=== PATIENT | female | born 1945 | race Caucasian/White ===

== ENCOUNTER → 2019-04-16 13:27 | Outpatient (BNVA) | payer MEDICARE, SELFPAY | PROVIDERS: Family Provider Nurse Practitioner Family; Visit Provider Family Medicine | DX: N12 Tubulo-interstitial nephritis, not specified as acute or chronic (principal); N10 Acute pyelonephritis; N39.0 Urinary tract infection, site not specified | CPT/HCPCS: 81003 ==

== ENCOUNTER 2019-08-27 09:15 | Inpatient (IN) | payer MEDICARE, SELFPAY ==
[2019-08-27] VITALS (9 sets, daily range): BP systolic 126–143; BP diastolic 76–98; PULSE 68–100; RESP 16–20; TEMP 36.8–37.7; O2SAT 95–100; BMI 27.2
--- NOTE | 2019-08-27 09:59 | XR_ITS ---
WS: [id number] PORTABLE CHEST HISTORY: dyspnea/cough COMPARISON: 04/29/2017 New obscuration and consolidation at the LEFT lung base. RIGHT lung is clear. Normal vasculature. No pleural effusion or pneumothorax. Cardiac size: Mildly enlarged cardiac silhouette. Mediastinum/Aorta: Partially calcified aorta. No osseous abnormality seen. XR/XR chest 1V portable [id number] IMPRESSION: Acute LEFT lower lobe pneumonia and probable small adjacent effusion.
[2019-08-27 10:21] LABS: Basophils % 0.3 %; Eosinophils % 0.2 %; Hematocrit 41.6 % (37.0-47.0); Hemoglobin 13.1 g/dL (11.5-15.3); Lymphocytes % 8.3 %; Mean Corpuscular HGB Conc 31.5 g/dL (30.0-36.0); Mean Corpuscular Hemoglobin 30.3 pg (28.0-34.0); Mean Corpuscular Volume 96.3 fL (81-99); Mean Platelet Volume 9.4 fL (7.4-10.4); Monocytes # 0.8 10^3/uL (0.2-0.9); Monocytes % 6.4 %; Neutrophils # 9.4 10^3/uL (1.8-7.7); Neutrophils % 79.6 %; Nucleated Red Blood Cells % 0 %; Platelet Count 181 10^3/cmm (130-400); Red Blood Count 4.32 10^6/uL (4.1-5.3); Red Cell Distribution Width 15.1 % (12.1-15.1); White Blood Count 11.9 10^3/uL (4.0-10.0)
[2019-08-27 10:24] LABS: Alveolar-Arterial Oxygen Gradi 47.7 mmHg (5-10); Arterial Blood Gas Hematocrit 41.3 % (37-47); Base Excess ABG 1.5 mmol/L (-2.0-2.0); Blood Gas Allen Test Pos; Blood Gas Operator Identificat glc; Blood Gas Sample Site Radial, right; Blood Gas Sample Type Arterial; Carboxyhemoglobin 1.4 %THgb (0.4-20.1); HCO3 ABG 24.1 mmol/L (22-26); Ionized Calcium Level - ABG 1.2 mmol/L (1.1-1.4); Methemoglobin 0.9 % (0.4-1.5); Oxygen Device ROOM AIR; Oxygen Saturation ABG 95.2; PO2 ABG 61.7 mmHg (80.0-100.0); Total Hemoglobin 13.5 g/dL (12-16)
--- NOTE | 2019-08-27 10:31 | W.ED.GENADLT ---
HPI - General Adult General: Chief complaint: General Medical Stated complaint: coughing up blood/trouble walking Time Seen by Provider: 08/27/19 09:22 History of Present Illness: HPI narrative: 74-year-old female with a known history of lung cancer with metastasis to the brain she diagnosed about 3 to 4 months ago she usually is receiving her oncology treatment in [facility] she recently completed radiation she supposed to begin chemo on 724. She comes in today complaining of left lower chest pain worse when she takes a deep breath and increasing hemoptysis over the last several days showed a low-grade fever as well as a change in character of sputum including the increased blood. She has not had any radiation to the lung. They have been tapering her off some steroid she has noticed significant increase in difficulty with breathing as well. She is not been around anyone who is COVID positive as far she is aware. Onset (ago): day(s) Location: chest (Left lower chest pain with deep inspiration sharp point tenderness) Radiation: non-radiation Severity: severe Quality: stabbing and sharp Pain Consistency: intermittent Relieving factors: immobilization and rest Exacerbating factors: other (Deep inspiration and movement) Associated symptoms: Reports chest pain, cough, diaphoresis, decreased appetite, dyspnea, fevers/chills and malaise; Deny nausea, rash or vomiting Treatments prior to arrival: none Review of Systems Const: Reports: malaise and diaphoresis ENMT: Denies: throat pain, ear or mastoid pain, nasal discharge or nasal congestion Card: Reports: chest pain Resp: Reports: dyspnea, productive cough, non-productive cough and hemoptysis GI: Denies: abdominal pain, nausea, vomiting, hematemesis, coffee ground emesis, diarrhea, constipation, bloating, hematochezia or melena : Denies: flank pain, difficulty voiding, dysuria, urinary frequency or urinary urgency Skin/Breast: Denies: rash or pruritus PFSH ED PFSH: Medical History (Updated 08/27/19 @ 14:42 by Grady Resendiz DO) Non-small cell lung cancer metastatic to brain Surgical History (Updated 08/27/19 @ 10:41 by Grady Resendiz DO) H/O hysterectomy for benign disease S/P appy Social History (Updated 04/16/19 @ 13:17 by Sienna Elias LPN) Smoking and tobacco status: never smoked Alcohol intake: never Physical Exam Const: COMMON NORMALS: no acute distress GENERAL APPEARANCE: cooperative and comfortable ORIENTATION/CONSCIOUSNESS: Yes awake, Yes oriented to person, Yes oriented to place and Yes oriented to time HENMT: COMMON NORMALS: normocephalic, atraumatic, hearing grossly normal bilaterally, external ears normal, EAC's normal, TM's normal bilaterally, Normal nasal mucous membranes and turbinates present, moist oral mucous membranes and oropharynx normal HEAD & SCALP: normocephalic and atraumatic NOSE: Normal nasal mucous membranes and turbinates present EXTERNAL EAR: Yes external ears normal EXTERNAL AUDITORY CANAL: EAC's normal TYMPANIC MEMBRANE: TM's normal bilaterally Eye: COMMON NORMALS: Equal, round and reactive pupils present, EOMs intact bilaterally, conjunctivae normal and no scleral icterus CONJUNCTIVA: Yes conjunctivae normal PUPIL: Yes Equal, round and reactive pupils present Neck/C-Spine: COMMON NORMALS: full ROM, no lymphadenopathy, supple and no JVD Lymph: LYMPHATIC: no lymphadenopathy noted and no lymphedema noted Resp: AUSCULTATION: diminished lung sounds on the left in the lower lung kent Cardio: COMMON NORMALS: no JVD, regular rate, regular rhythm and No murmurs present (Cardio) RATE: regular rate RHYTHM: regular rhythm GI: COMMON NORMALS: Soft to palpation and No hepatosplenomegaly present AUSCULTATION: Yes normoactive bowel sounds PALPATION: Yes Soft to palpation, No Tenderness to palpation present (GI), No Guarding due to palpation present (GI) and Yes No hepatosplenomegaly present Extremity: COMMON NORMALS: normal to inspection, capillary refill normal, no clubbing, cyanosis or edema, no calf tenderness and no pedal edema Neuro: SENSORIUM/ORIENTATION: Yes oriented to person, Yes oriented to place and Yes oriented to time Skin: COMMON NORMALS: no rashes or lesions noted GENERAL SKIN EXAM: no rashes or lesions noted Course Vital Signs: Vital signs: Vital Signs Temperature 99.8 F H 08/27/19 09:26 Pulse Rate 100 08/27/19 09:26 Respiratory Rate 18 08/27/19 10:40 Blood Pressure 143/85 08/27/19 09:26 Pulse Oximetry 95 08/27/19 10:40 MDM - General Adult MDM Narrative: Medical decision making narrative: CT shows multiple pulmonary infarcts as well as a pneumonia will go and started on IV antibiotics and heparin. Discussed Dr. Ramirez will be admitting. She is not having any significant amount process at this time. Lab Data: Labs: Lab Results 08/27/19 08/27/19 08/27/19 Range/Units 09:08 09:08 09:08 WBC 11.9 H (4.0-10.0) 10^3/ uL RBC 4.32 (4.1-5.3) 10^6/u L Hgb 13.1 (11.5-15.3) g/dL Hct 41.6 (37.0-47.0) % MCV 96.3 (81-99) fL MCH 30.3 (28.0-34.0) pg MCHC 31.5 (30.0-36.0) g/dL RDW 15.1 (12.1-15.1) % Plt Count 181 (130-400) 10^3/c mm MPV 9.4 (7.4-10.4) fL Neut % (Auto) 79.6 % Lymph % (Auto) 8.3 % [place] % (Auto) 6.4 % Eos % (Auto) 0.2 % Baso % (Auto) 0.3 % Neut # (Auto) 9.4 H (1.8-7.7) 10^3/u L Lymph # (Auto) 1.0 (0.8-4.8) 10^3/u L [place] # (Auto) 0.8 (0.2-0.9) 10^3/u L Eos # (Auto) 0.0 (0.0-0.8) 10^3/u L Baso # (Auto) 0.0 (0.0-0.1) 10^3/u L Nucleated RBC % (a uto) 0 % Nucleated RBCs # 0.0 /100WBC Specimen Type Sample Site ABG pH (7.35-7.45) ABG pCO2 (35-45) mmHg ABG pO2 (80.0-100.0) mmH g ABG HCO3 (22-26) mmol/L ABG O2 Saturation ABG Base Excess (-2.0-2.0) mmol/ L Ponce Test A-a O2 Gradient (5-10) mmHg Hematocrit (37-47) % Hgb O2 Saturation (95-100) % Carboxyhemoglobin (0.4-20.1) %THgb Methemoglobin (0.4-1.5) % Total Hemoglobin (12-16) g/dL Ionized Calcium (1.1-1.4) mmol/L O2 Delivery Device FiO2 % Air Gun Operator ID Sodium 136 (136-145) mmol/L Potassium 4.4 (3.5-5.1) mmol/L Chloride 98 (98-107) mmol/L Carbon Dioxide 26 (22-29) mmol/L Anion Gap 16.4 (5-19) BUN 16 (8-23) mg/dL Creatinine 0.8 (0.5-0.9) mg/dL Glucose 100 (65-115) mg/dL Calculated Osmolal ity 278 L (285-295) mOsm/k g Lactate 0.9 (0.5-2.2) mmol/L Calcium 8.9 (8.5-10.5) mg/dL Total Bilirubin 0.9 (0.15-1.2) mg/dL AST 26 (0-32) U/L ALT 31 (0-33) U/L Alkaline Phosphata se 98 (35-105) IU/L Total Protein 6.6 (6.6-8.7) g/dL Albumin 3.5 (3.5-5.2) g/dL Globulin 3.1 (1.3-4.6) g/dL Urine Color (Yellow) Urine Appearance (CLEAR) Urine pH (5-7) Ur Specific Gravit y (1.005-1.030) Urine Protein (Negative) Urine Glucose (UA) (Normal) Urine Ketones (Negative) Urine Blood (Negative) Urine Nitrate (Negative) Urine Bilirubin (NEGATIVE) Urine Urobilinogen (Negative) mg/dL Ur Leukocyte Alia ase (Negative) Urine RBC (0-2) /hpf Urine WBC (0-5) /hpf Ur Squamous Epith Cells (0-5) Amorphous Sediment Urine Bacteria (NONE) 08/27/19 08/27/19 Range/Units 10:11 11:12 WBC (4.0-10.0) 10^3/ uL RBC (4.1-5.3) 10^6/u L Hgb (11.5-15.3) g/dL Hct (37.0-47.0) % MCV (81-99) fL MCH (28.0-34.0) pg MCHC (30.0-36.0) g/dL RDW (12.1-15.1) % Plt Count (130-400) 10^3/c mm MPV (7.4-10.4) fL Neut % (Auto) % Lymph % (Auto) % [place] % (Auto) % Eos % (Auto) % Baso % (Auto) % Neut # (Auto) (1.8-7.7) 10^3/u L Lymph # (Auto) (0.8-4.8) 10^3/u L [place] # (Auto) (0.2-0.9) 10^3/u L Eos # (Auto) (0.0-0.8) 10^3/u L Baso # (Auto) (0.0-0.1) 10^3/u L Nucleated RBC % (a uto) % Nucleated RBCs # /100WBC Specimen Type Arterial Sample Site Radial, right ABG pH 7.50 H (7.35-7.45) ABG pCO2 31.0 L (35-45) mmHg ABG pO2 61.7 L (80.0-100.0) mmH g ABG HCO3 24.1 (22-26) mmol/L ABG O2 Saturation 95.2 ABG Base Excess 1.5 (-2.0-2.0) mmol/ L Ponce Test Pos A-a O2 Gradient 47.7 H (5-10) mmHg Hematocrit 41.3 (37-47) % Hgb O2 Saturation 93.0 L (95-100) % Carboxyhemoglobin 1.4 (0.4-20.1) %THgb Methemoglobin 0.9 (0.4-1.5) % Total Hemoglobin 13.5 (12-16) g/dL Ionized Calcium 1.2 (1.1-1.4) mmol/L O2 Delivery Device Room air FiO2 21.0 % Air Gun Operator ID glc Sodium 134.0 (136-145) mmol/L Potassium 4.0 (3.5-5.1) mmol/L Chloride (98-107) mmol/L Carbon Dioxide (22-29) mmol/L Anion Gap (5-19) BUN (8-23) mg/dL Creatinine (0.5-0.9) mg/dL Glucose 100.0 (65-115) mg/dL Calculated Osmolal ity (285-295) mOsm/k g Lactate (0.5-2.2) mmol/L Calcium (8.5-10.5) mg/dL Total Bilirubin (0.15-1.2) mg/dL AST (0-32) U/L ALT (0-33) U/L Alkaline Phosphata se (35-105) IU/L Total Protein (6.6-8.7) g/dL Albumin (3.5-5.2) g/dL Globulin (1.3-4.6) g/dL Urine Color Yellow (Yellow) Urine Appearance Sl hazy (CLEAR) Urine pH 5 (5-7) Ur Specific Gravit y 1.020 (1.005-1.030) Urine Protein Neg (Negative) Urine Glucose (UA) Norm (Normal) Urine Ketones Negative (Negative) Urine Blood Neg (Negative) Urine Nitrate Negative (Negative) Urine Bilirubin Neg (NEGATIVE) Urine Urobilinogen Norm (Negative) mg/dL Ur Leukocyte Alia ase 1+ H (Negative) Urine RBC None (0-2) /hpf Urine WBC 5-10 H (0-5) /hpf Ur Squamous Epith Cells 0-4 H (0-5) Amorphous Sediment Not Reportable Urine Bacteria 1+ H (NONE) Discharge Plan Discharge Admit Provider: Akhil Ramirez Clinical Impression: Non-small cell lung cancer metastatic to brain, Pulmonary emboli, Embolism, pulmonary with infarction Condition: Stable Coding Level of Care Code ED Bench Technician for Chg Fwd Exam Comprehensive
[2019-08-27 10:35] LABS: Alanine Aminotransferase 31 U/L (0-33); Albumin Level 3.5 g/dL (3.5-5.2); Alkaline Phosphatase 98 IU/L (35-105); Anion Gap 16.4 (5-19); Aspartate Amino Transferase 26 U/L (0-32); Blood Urea Nitrogen 16 mg/dL (8-23); Calcium 8.9 mg/dL (8.5-10.5); Carbon Dioxide 26 mmol/L (22-29); Chloride 98 mmol/L (98-107); Globulin 3.1 g/dL (1.3-4.6); Glucose 100 mg/dL (65-115); Osmolality Calculated 278 mOsm/kg (285-295); Potassium 4.4 mmol/L (3.5-5.1); Sodium 136 mmol/L (136-145); Total Bilirubin 0.9 mg/dL (0.15-1.2); Total Protein 6.6 g/dL (6.6-8.7)
[2019-08-27 10:36] LABS: Lactate (Lactic Acid level) 0.9 mmol/L (0.5-2.2)
[2019-08-27] MEDS: morphine 4 mg/mL SDV 1 mL 6 MG IVP (10:40)
[2019-08-27] MEDS: ondansetron 2 mg/ML SDV 2 mL 4 MG IVP (10:40)
[2019-08-27] MEDS: sodium chloride 0.9% 1,000 ML 999 ML IV (10:42)
[2019-08-27 11:10] LABS: Slide Review Slide Review Perform
[2019-08-27 11:36] LABS: Add Urine Microscopic? YES; Bilirubin Urine Neg (NEGATIVE); Blood Urine Neg (Negative); Glucose Urine UA Norm (Normal); Ketones Urine Negative (Negative); Leukocyte Esterase Urine 1+ (Negative); Nitrate Urine Negative (Negative); Protein Urine Neg (Negative); Urine Appearance SL Hazy (CLEAR); Urine Color Yellow (Yellow); Urobilinogen Urine Norm (Negative); pH Urine 5 (5-7)
[2019-08-27 11:47] LABS: Bacteria Urine 1+; Squamous Epithelial Cell Urine 0-4 (0-5)
[2019-08-27 11:48] LABS: Add Urine Culture? No
[2019-08-27] MEDS: levofloxacin-dextrose 5 % 750 MG/150 ML PREMIX 100 MG IV (12:02)
--- NOTE | 2019-08-27 12:14 | CT_ITS ---
WS: [id number] CT CHEST ANGIOGRAPHY WITH REFORMATS HISTORY: chest pain, dyspnea TECHNIQUE: Contiguous axial images are obtained through the chest during arterial injection of intrav enous contrast. Images are reconstructed to evaluate the pulmonary arteries. MIP imaging also reviewe d. All CT scans at [facility] use at least one of these dose optimization techniques: aut omated exposure control; mA and/or kV adjustment per patient size (includes targeted exams where dose is matched to clinical indication); or iterative reconstruction. CONTRAST: Omnipaque 350; 95 mL IV. DLP: 521.09 mGy.cm COMPARISON: 09/03/2014 Excellent opacification of the pulmonary arteries. Centrally there are no filling defects. The RIGHT and LEFT main pulmonary arteries are free of emboli. Multiple emboli are noted in the segmental and s ubsegmental arteries of the RIGHT upper, RIGHT middle and RIGHT lower lobes. Majority of these embol i are nonocclusive. There is an associated developing wedge-shaped opacification in the RIGHT lower l obe which is probably an infarct. LEFT upper lower lobe segmental and subsegmental nonocclusive pulmo nary emboli are also noted. LEFT lower lobe pulmonary infarct. Small bilateral pleural effusions, LEF T greater than RIGHT. LEFT apical spiculated nodule measures 1.2 cm. Described on 09/03/2014 with no follow-up since that ex am. Pneumonitis at the LEFT lung base. Subsegmental atelectasis at the RIGHT lung base. Mild atherosclerosis aorta. No aneurysm. Heart size is slightly enlarged. Mild thickening of the sanna cardium. No significant adenopathy. Liver is normal. Visualized upper abdominal structures are negative. Increase in thoracic kyphosis. No osteoblastic or osteolytic bone disease. CT/CT angio chest PE protcl [id number] IMPRESSION: 1. Multi lobar segmental and subsegmental nonocclusive pulmonary emboli. 2. Pulmonary infarcts in the lower lobes bilaterally secondary to the emboli. 3. Small bilateral, LEFT greater than RIGHT pleural effusions. 4. Spiculated LEFT upper lobe nodule measures 1.2 cm. Suspicious for neoplasm. 5. Cardiomegaly. 6. No adenopathy.
[2019-08-27] MEDS: iohexol 350 mg/mL 100 mL Btl IV (12:42)
[2019-08-27] MEDS: heparin 5,000 unit/mL INJ 1 mL 4000 UNIT IVP (14:27)
[2019-08-27] MEDS: piperacillin-tazobactam 3.375 GM in sodium chloride 0.9% (plus) 50 ML IV ×2 (14:36→15:11)
[2019-08-27] MEDS: heparin drip 25,000 UNIT/500 ML PREMIX 18.6 UNIT IV (15:00)
--- NOTE | 2019-08-27 16:53 | P.HP_ITS ---
Providers/Chief Complaint Admitting Physician: Akhil Ramirez Chief Complaint: coughing up blood/trouble walking History of Present Illness Helen Jones is a 74 year old female with metastatic squamous cell cancer undergoing treatment in [facility], with disease metastatic to brain, having finished 10 weeks of radiation therapy, currently pending reassessment by oncology to initiate chemotherapy, HLD presented to the hospital due to left lower chest wall pain, but also shortness of breath, cough, phlegm production and blood clots in sputum. In ER with temperature 99.8, left lower lobe infiltrate suspected pneumonia on chest x-ray. CT angiogram was requested due to concern for PE, and with finding of multilobar segmental and subsegmental nonocclusive PE, as well as with complication of pulmonary infarct in lower lobes bilaterally due to the emboli. Small bilateral pleural effusions. Spiculated left upper lobe nodule 1.2 cm for which she is aware. She was started on antibiotics for pneumonia and heparin drip for anticoagulation. During my questioning she overall is feeling well, she states that the pain in posterior left chest is reproducible on palpation, although she also has difficult time taking deep breaths. She has been producing a good amount of phlegm, and with mixed in blood clots. She denies have any fever at home, denies having any chills or rigors, denies any headache. She has not been exposed to anybody who is COVID, and always wears a mask, use a day care attendant, and gets her groceries from her friends will bring them to her house, who also aware mask and gloves at all times. Review of Systems Const: Denies: fever(s), chills, body aches or malaise Eyes: Denies: change in vision or eye redness ENMT: Denies: throat pain, oral sores or ear or mastoid pain Card: Denies: chest pain, edema, pre-syncope or dyspnea on exertion Resp: Reports: dyspnea, productive cough, hemoptysis and other (Chest wall pain left lower posterior chest); Denies: wheezing GI: Denies: abdominal pain, nausea, vomiting, diarrhea, constipation, hematochezia or melena : Denies: flank pain, urinary frequency or hematuria Musc: Denies: back pain, joint swelling or joint redness Skin/Breast: Denies: rash, sores or new lesions Neuro: Denies: headache(s), numbness in extremities, weakness in extremities, dizziness, confusion or seizure-like activity Endo: Denies: polyuria or polydipsia Familia/Lymph: Denies: easy bleeding or purpura All/Imm: Denies: urticaria, throat swelling or tongue swelling Medications/Allergies Home Medications Medication Instructions Recorded Confirmed Last Taken Type sacubitril 24 mg-valsartan 26 mg 1 tab PO BID 04/16/19 08/27/19 08/27/19 History tablet albuterol sulfate 1 puff INHALATION Q6H PRN 08/27/19 08/27/19 Unknown History atorvastatin 20 mg PO DAILY 08/27/19 08/27/19 08/27/19 History carvedilol 3.125 mg PO BID 08/27/19 08/27/19 08/27/19 History dexamethasone See Rx Instructions .ROUTE .COMPLEX 08/27/19 08/27/19 Unknown History hydrocodone-acetaminophen 1 - 2 tab PO Q4H PRN 08/27/19 08/27/19 08/26/19 History lidocaine 1 applic TOPICAL TID PRN 08/27/19 08/27/19 Unknown History multivit with min-folic acid 200 mcg PO DAILY 08/27/19 08/27/19 08/27/19 History [Adult Multivitamin Gummies] trazodone 50 mg PO BEDTIME PRN 08/27/19 08/27/19 Unknown History Allergies Allergy/AdvReac Type Severity Reaction Status Date / Time No Known Allergies Allergy Verified 08/27/19 10:21 PFSH Acute PFSH: Medical History HLD (hyperlipidemia) Non-small cell lung cancer metastatic to brain Surgical History H/O hysterectomy for benign disease H/O knee surgery H/O shoulder surgery S/P appy Family History Other Hypertension Social History Smoking and tobacco status: never smoked Alcohol intake: never Substance/Drug Use: never Lives independently: Yes Household members: other Details: girlfriend Vitals/I&O/Wt Last Vital Signs Temp 98.2 F 08/27/19 15:31 Pulse 85 08/27/19 15:31 Resp 18 08/27/19 15:31 BP 127/83 08/27/19 15:31 Pulse Ox 95 08/27/19 15:31 Weight last 48 hrs Weight 66.451 kg Physical Exam Const: COMMON NORMALS: no acute distress and patient oriented x3 HENMT: COMMON NORMALS: oropharynx normal HEAD & SCALP: other (alopecia) Neck/C-Spine: COMMON NORMALS: no JVD Resp: COMMON NORMALS: normal respiratory effort and clear to auscultation jacqueline aterally AUSCULTATION: clear to auscultation bilaterally Cardio: COMMON NORMALS: no JVD, regular rhythm, S1 normal heart sound present, S2 normal heart sound present and No murmurs present (Cardio) RHYTHM: regular rhythm HEART SOUNDS: S1 normal heart sound present and S2 normal heart sound present GI: COMMON NORMALS: Normal to inspection, nondistended, normoactive bowel sounds present, Soft to palpation and non-tender PALPATION: Yes Soft to palpation Extremity: COMMON NORMALS: no joint enlargement and no pedal edema Neuro: COMMON NORMALS: patient oriented x3 and moves all extremities Skin: COMMON NORMALS: no rashes or lesions noted GENERAL SKIN EXAM: no rashes or lesions noted Data : 08/27/19 09:08 08/27/19 09:08 Micro: Microbiology 08/27/19 09:08 Blood Culture - Preliminary Blood SPECIMEN COLLECTED 08/27/19 09:08 Blood Culture - Preliminary Blood SPECIMEN COLLECTED A&P Assessment and plan (1) Pulmonary emboli: Bilateral nonobstructing segmental and subsegmental emboli. Started on heparin drip. As she describes history of metastatic brain disease, and recently completed 10 weeks of radiation therapy will request for CT head. Discussed with her anticoagulation would not be an option if there is any sign of hemorrhage. Discussed also with her if no sign of hemorrhage, still may be an non-zero existent risk as per discussion with oncology for bleeding with anticoagulation in setting of metastatic disease and radiation therapy, however, this risk is rather low/rare, and certainly lower than complication risk of secondary to pulmonary emboli. She verbalized understanding and agreement. Will ask to hold heparin for now until CT complete. If anticoagulation is safe, will monitor on heparin drip in the hospital prior to initiation of oral anticoagulant given hemoptysis no sputum with blood clots, as well as brain ascites and radiation. Status: Acute (2) Embolism, pulmonary with infarction: Possible pneumonia: With low-grade temperature 99.8. She wears a mask, uses ventilator and gloves at all times, has not been exposed to anybody with COVID-19. She has not had any fever at home, no rigors or headache. For now continue treatment for possible pneumonia. Monitor. Will request sputum culture, bacterial antigens. Status: Acute (3) Non-small cell lung cancer metastatic to brain: Continue follow-up with oncology. Status: Acute Attestations Medical Necessity Statement*: Admission of over 2 midnights is continued for assessment management of PE, with foci of pulmonary infarction, with underlying lung cancer, with metastatic lesions to the brain, hemoptysis. Coding Level of Care Code Acute Director Of Student Financial Services for Benita Izaguirre Diagnoses Pulmonary emboli I26.99 Embolism, pulmonary with infarction I26.99 Non-small cell lung cancer metastatic to brain C34.90; C79.31
[2019-08-27] MEDS: sodium chloride 0.9% 1,000 ML 100 ML IV (17:10)
--- NOTE | 2019-08-27 17:14 | CTR_ITS ---
PROCEDURE INFORMATION: Exam: CT Head Without Contrast Exam date and time: 08/27/2019 5:50 PM Age: 74 years old Clinical indication: Condition or disease; Brain tumor; Neoplasm of brain, not specified; Patient HX: HX of lung CA w brain mets now w multiple pe's requiring anticoagulation; Additional info: Requiring anticoagulation, brain mets, HX radiotherapy TECHNIQUE: Imaging protocol: Computed tomography of the head without contrast. Radiation optimization: All CT scans at this facility use at least one of these dose optimization techniques: automated exposure control; mA and/or kV adjustment per patient size (includes targeted exams where dose is matched to clinical indication); or iterative reconstruction. COMPARISON: CT head wo con* [id number] 09/02/2014 11:51 AM RADIATION DOSE METRICS: Total DLP (mGy-cm): 673.83 FINDINGS: Brain: There is volume loss and periventricular low density compatible with chronic small vessel disease changes. There is no midline shift, edema or mass effect. Ventricles: There is a hyperdense mass along the medial aspect of the posterior horn right lateral ventricle that measures 1.6 by 1.7 by 2.0 cm in size image 23 not definitely visualized on the prior exam. There is a new hyperdense mass/nodule in the posterior aspect of the 4th ventricle measuring 1.1 x 1.1 x 1.4 cm in size image 13. No hydrocephalus. The basilar cisterns are patent. Bones/joints: Unremarkable. No acute fracture. Sinuses: Visualized sinuses are unremarkable. No fluid levels. Mastoid air cells: Visualized mastoid air cells are well aerated. Soft tissues: Unremarkable. Other findings: There is no acute hemorrhage. CT/CT head wo con* [id number] IMPRESSION: At least 2 new hyperdense masses are identified compared to the prior exam. No acute hemorrhage, edema or mass effect. MRI may be helpful to further characterize the extent of disease. Radiation Dose CTDIVOL = (mGy): DLP = 673.83 (mGy-cm)
[2019-08-27 17:27] LABS: Partial Thromboplastin Time 104.1 SECONDS (23.9-36.7)
[2019-08-27] MEDS: carvedilol 3.125 mg Tablet PO (19:07)
[2019-08-27 19:30] LABS: Partial Thromboplastin Time 62.2 SECONDS (23.9-36.7)
[2019-08-27 21:38] LABS: Partial Thromboplastin Time 59.3 SECONDS (23.9-36.7)
[2019-08-28] VITALS (8 sets, daily range): BP systolic 112–151; BP diastolic 65–86; PULSE 74–85; RESP 14–18; TEMP 36.4–37.6; O2SAT 94–98
[2019-08-28 03:52] LABS: Alanine Aminotransferase 81 U/L (0-33); Albumin Level 2.8 g/dL (3.5-5.2); Alkaline Phosphatase 134 IU/L (35-105); Anion Gap 15.3 (5-19); Blood Urea Nitrogen 14 mg/dL (8-23); Carbon Dioxide 22 mmol/L (22-29); Chloride 100 mmol/L (98-107); Globulin 2.1 g/dL (1.3-4.6); Glucose 106 mg/dL (65-115); Osmolality Calculated 273 mOsm/kg (285-295); Potassium 4.3 mmol/L (3.5-5.1); Sodium 133 mmol/L (136-145); Total Bilirubin 0.5 mg/dL (0.15-1.2); Total Protein 4.9 g/dL (6.6-8.7)
[2019-08-28 03:56] LABS: Partial Thromboplastin Time 61.3 SECONDS (23.9-36.7)
[2019-08-28 05:15] LABS: Aspartate Amino Transferase 70 U/L (0-32)
[2019-08-28] MEDS: atorvastatin 40 mg Tablet 20 MG PO (07:47)
[2019-08-28] MEDS: carvedilol 3.125 mg Tablet PO ×2 (07:47→17:43)
[2019-08-28] MEDS: dexamethasone 4 mg Tablet PO (07:48)
[2019-08-28 07:50] LABS: Basophils # 0.1 10^3/uL (0.0-0.1); Basophils % 0.5 %; Eosinophils % 0.4 %; Hematocrit 35.6 % (37.0-47.0); Hemoglobin 11.6 g/dL (11.5-15.3); Lymphocytes % 10.7 %; Mean Corpuscular HGB Conc 32.6 g/dL (30.0-36.0); Mean Corpuscular Hemoglobin 31.4 pg (28.0-34.0); Mean Corpuscular Volume 96.5 fL (81-99); Mean Platelet Volume 10.8 fL (7.4-10.4); Monocytes # 0.7 10^3/uL (0.2-0.9); Monocytes % 7.5 %; Neutrophils # 7.3 10^3/uL (1.8-7.7); Neutrophils % 75.9 %; Nucleated Red Blood Cells % 0 %; Platelet Count 172 10^3/cmm (130-400); Red Blood Count 3.69 10^6/uL (4.1-5.3); Red Cell Distribution Width 15.2 % (12.1-15.1); White Blood Count 9.6 10^3/uL (4.0-10.0)
[2019-08-28 09:15] LABS: Partial Thromboplastin Time 92.3 SECONDS (23.9-36.7)
[2019-08-28] MEDS: sodium chloride 0.9% 1,000 ML 100 ML IV ×2 (09:33→17:43)
[2019-08-28] MEDS: levofloxacin-dextrose 5 % 750 MG/150 ML PREMIX 100 MG IV (12:29)
[2019-08-28 17:01] LABS: Partial Thromboplastin Time 52.1 SECONDS (23.9-36.7)
[2019-08-28] MEDS: heparin 5,000 unit/mL INJ 1 mL IV (17:11)
[2019-08-28] MEDS: sacubitril/valsartan 24-26 mg Tablet 0.5 EACH PO (17:42)
--- NOTE | 2019-08-28 17:45 | PC.NURSE ---
Vital signs entered for Krystol the nurses aid for 1600
--- NOTE | 2019-08-28 19:11 | PM.PN ---
Subjective Subjective: Interval history: Reports today she is doing well. Coughed up some sputum which is sitting on her table, with a few brownish appearing small clots, less than 5 mm in size mixed with sputum. No fresh blood. Vitals/I&O/Wt Last Vital Signs Temp 99.1 F 08/28/19 16:00 Pulse 85 08/28/19 16:00 Resp 18 08/28/19 16:00 BP 112/72 08/28/19 16:00 Pulse Ox 96 08/28/19 16:00 08/28/19 08/28/19 08/28/19 06:59 14:59 22:59 Intake Total 1000 / 2490 360 / 360 816.667 / 1176.667 Balance 1000 / 2490 360 / 360 816.667 / 1176.667 Weight last 48 hrs Weight 66.451 kg Physical Exam Const: COMMON NORMALS: no acute distress and patient oriented x3 HENMT: COMMON NORMALS: oropharynx normal HEAD & SCALP: other (alopecia) Neck/C-Spine: COMMON NORMALS: no JVD Resp: COMMON NORMALS: normal respiratory effort and clear to auscultation bilaterally AUSCULTATION: clear to auscultation bilaterally Cardio: COMMON NORMALS: no JVD, regular rhythm, S1 normal heart sound present, S2 normal heart sound present and No murmurs present (Cardio) RHYTHM: regular rhythm HEART SOUNDS: S1 normal heart sound present and S2 normal heart sound present GI: COMMON NORMALS: Normal to inspection, nondistended, normoactive bowel sounds present, Soft to palpation and non-tender PALPATION: Yes Soft to palpation Extremity: COMMON NORMALS: no joint enlargement and no pedal edema Neuro: COMMON NORMALS: patient oriented x3 and moves all extremities Skin: COMMON NORMALS: no rashes or lesions noted GENERAL SKIN EXAM: no rashes or lesions noted Data : 08/28/19 02:39 08/28/19 02:39 Micro: Microbiology 08/27/19 09:08 Blood Culture - Preliminary Blood NEGATIVE TO DATE 08/27/19 09:08 Blood Culture - Preliminary Blood NEGATIVE TO DATE 08/27/19 11:12 Bacterial Antigens - Final Urine,Clean Catch 08/27/19 11:12 Legionella Urinary Antigen - Final Urine,Clean Catch A&P Assessment and plan (1) Pulmonary emboli: Negative CT head for any bleeding. Tolerated heparin well so far. Few small brownish old clots coming up in sputum. No fresh blood. Per discussion with her we will transition over to Mickey. Discussed that perhaps we may consider repeat CT scan of the head in about a week to exclude any sort of bleeding as per our prior discussion. In case of any bleeding may not be able to continue anticoagulation. IVC filter or other options may be necessary. Bilateral nonobstructing segmental and subsegmental emboli. Started on heparin drip. As she describes history of metastatic brain disease, and recently completed 10 weeks of radiation therapy. Status: Acute (2) Embolism, pulmonary with infarction: Possible pneumonia: Afebrile. Low-grade temp resolved. Continue Levaquin for now. She wears a mask, uses ventilator and gloves at all times, has not been exposed to anybody with COVID-19. She has not had any fever at home, no rigors or headache. For now continue treatment for possible pneumonia. Monitor. Will request sputum culture, bacterial antigens. Status: Acute (3) Non-small cell lung cancer metastatic to brain: Continue follow-up with oncology. Status: Acute Attestations Medical Necessity Statement*: Continue admission for assessment management of multiple pulmonary emboli with pulmonary infarction. Coding Level of Care Code Acute Tube And Rod Straightener for Benita Izaguirre Diagnoses Pulmonary emboli I26.99 Embolism, pulmonary with infarction I26.99 Non-small cell lung cancer metastatic to brain C34.90; C79.31
[2019-08-29] VITALS (7 sets, daily range): BP systolic 147–162; BP diastolic 82–87; PULSE 69–79; RESP 18; TEMP 36.4–37.2; O2SAT 94–97
[2019-08-29] MEDS: sacubitril/valsartan 24-26 mg Tablet 1 EACH PO (05:36)
[2019-08-29 06:01] LABS: Alanine Aminotransferase 59 U/L (0-33); Albumin Level 2.6 g/dL (3.5-5.2); Alkaline Phosphatase 119 IU/L (35-105); Anion Gap 14.3 (5-19); Blood Urea Nitrogen 12 mg/dL (8-23); Calcium 8.2 mg/dL (8.5-10.5); Carbon Dioxide 21 mmol/L (22-29); Chloride 108 mmol/L (98-107); Globulin 1.8 g/dL (1.3-4.6); Glucose 108 mg/dL (65-115); Osmolality Calculated 285 mOsm/kg (285-295); Potassium 4.3 mmol/L (3.5-5.1); Sodium 139 mmol/L (136-145); Total Bilirubin 0.3 mg/dL (0.15-1.2); Total Protein 4.4 g/dL (6.6-8.7)
[2019-08-29 06:59] LABS: Aspartate Amino Transferase 36 U/L (0-32)
[2019-08-29 07:06] LABS: Basophils % 0.4 %; Eosinophils # 0.1 10^3/uL (0.0-0.8); Eosinophils % 0.7 %; Hematocrit 36.1 % (37.0-47.0); Hemoglobin 11.6 g/dL (11.5-15.3); Lymphocytes # 0.7 10^3/uL (0.8-4.8); Lymphocytes % 9.3 %; Mean Corpuscular HGB Conc 32.1 g/dL (30.0-36.0); Mean Corpuscular Hemoglobin 31.3 pg (28.0-34.0); Mean Corpuscular Volume 97.3 fL (81-99); Mean Platelet Volume 9.4 fL (7.4-10.4); Monocytes # 0.5 10^3/uL (0.2-0.9); Monocytes % 7.8 %; Neutrophils # 5.2 10^3/uL (1.8-7.7); Nucleated Red Blood Cells % 0 %; Platelet Count 209 10^3/cmm (130-400); Positive C 1; Positive M 1; Red Blood Count 3.71 10^6/uL (4.1-5.3); Red Cell Distribution Width 15.2 % (12.1-15.1)
[2019-08-29 07:15] LABS: Neutrophils % 81.8 %
[2019-08-29] MEDS: carvedilol 3.125 mg Tablet PO (08:21)
[2019-08-29] MEDS: atorvastatin 40 mg Tablet 20 MG PO (08:21)
--- NOTE | 2019-08-29 10:19 | P.DS_ITS ---
Discharge Providers Date of Admission: 08/27/19 12:16 Date of Discharge: August 29, 2019 Attending Provider at Admission: Akhil Ramirez Attending Provider at Discharge: Akhil Ramirez Diagnoses at Discharge Discharge Diagnosis (1) Pulmonary emboli: Status: Acute (2) Embolism, pulmonary with infarction: Status: Acute (3) Non-small cell lung cancer metastatic to brain: Status: Acute Reason for Visit Reason for Visit: coughing up blood/trouble walking Hospital Course Hospital Course: Very pleasant 74-year-old lady with history of metastatic lung cancer, with metastatic disease to the brain, having completed recently 10 weeks of radiation therapy and with plans to follow-up with oncology to set up further treatment was admitted for assessment management after presenting with shortness of breath, left lower posterior chest pain, coughing up blood clots. She was found to have multiple PE, as well as areas of resolving pulmonary infarction. She was monitored in the hospital after discussion of risks and benefits of anticoagulation. Small, but existent risk of intracranial bleeding was discussed with her with regards to brain metastases and prior irradiation, and she elected to proceed with anticoagulation at this time, but is encouraged to discuss again with her oncologist and radiation oncologist, as well as primary care provider. CT of the head will be repeated in 1 week to reassess that there is no bleeding. No bleeding foci were noted on CT while in the hospital. She has been coughing up phlegm, with few small clots in there, no mook bleeding. She is instructed to return to ER in case there is any mook blood, any severe headache, or other abnormality. Posterior left lower chest wall pain on palpation suspected musculoskeletal secondary to cough and soft tissue or rib trauma, and for now will be managed expectantly. Please follow-up with regards to these issues, as well as her other chronic illnesses. Please follow-up liver function as well due to mild elevation of AST, ALT, alkaline phosphatase, which have been improving, and possibly were secondary to transient cholestasis. She is assessed for need for oxygen on home O2 evaluation. Physical Exam Const: COMMON NORMALS: no acute distress and patient oriented x3 HENMT: COMMON NORMALS: oropharynx normal HEAD & SCALP: other (alopecia) Neck/C-Spine: COMMON NORMALS: no JVD Resp: COMMON NORMALS: normal respiratory effort and clear to auscultation bilaterally AUSCULTATION: clear to auscultation bilaterally Cardio: COMMON NORMALS: no JVD, regular rhythm, S1 normal heart sound present, S2 normal heart sound present and No murmurs present (Cardio) RHYTHM: regular rhythm HEART SOUNDS: S1 normal heart sound present and S2 normal heart sound present GI: COMMON NORMALS: Normal to inspection, nondistended, normoactive bowel sounds present, Soft to palpation and non-tender PALPATION: Yes Soft to palpation Extremity: COMMON NORMALS: no joint enlargement and no pedal edema Neuro: COMMON NORMALS: patient oriented x3 and moves all extremities Skin: COMMON NORMALS: no rashes or lesions noted GENERAL SKIN EXAM: no rashes or lesions noted Discharge Data Data Completed and Pending: Completed Studies During Hospitalization Category Date Time Status CT angio chest PE protcl 77505 Stat Cat Scan 08/27/19 12:[address] head wo con* 7 0450 Urgent Cat Scan 08/27/19 17:14 Completed XR chest 1V jah ble [id number] Stat Exams 08/27/19 09:59 Completed Pending at discharge Category Date Time Status Blood Culture Sta t Lab 08/27/19 09:08 Results Complete Blood Co unt w/Auto AM [facility]S Lab 08/30/19 04:00 Ordered Complete Blood Co unt w/Auto AM [facility] Lab 08/31/19 04:00 Ordered Comprehensive Met abolic Panel AM [facility] 08/30/19 04:00 Ordered Comprehensive Met abolic Panel AM [facility] 08/31/19 04:00 Ordered Sputum Culture an d Gram Stain Stat Lab 08/27/19 Ordered Labs from last 24 hours 08/29/19 08/29/19 08/29/19 06:55 05:00 05:00 WBC 7.0 Cancelled Corrected WBC Cancelled RBC 3.71 L Cancelled Hgb 11.6 Cancelled Hct 36.1 L Cancelled MCV 97.3 Cancelled MCH 31.3 Cancelled MCHC 32.1 Cancelled RDW 15.2 H Cancelled Plt Count 209 Cancelled MPV 9.4 Cancelled Gran % Cancelled Neut % (Auto) 81.8 Cancelled Lymph % (Auto) 9.[address] [place] % (Auto) 7.8 Cancelled Eos % (Auto) 0.7 Cancelled Baso % (Auto) 0.4 Cancelled Neut # (Auto) 5.2 Cancelled Lymph # (Auto) 0.[address] # (Auto) 0.5 Cancelled Eos # (Auto) 0.1 Cancelled Baso # (Auto) 0.0 Cancelled Absolute Gran (aut o) Cancelled Nucleated RBC % (a uto) 0 Cancelled Nucleated RBCs # 0.0 Cancelled APTT Sodium 139 Potassium 4.3 Chloride 108 H Carbon Dioxide 21 L Anion Gap 14.3 BUN 12 Creatinine 0.7 Glucose 108 Calculated Osmolal ity 285 Calcium 8.2 L Total Bilirubin 0.3 AST 36 H ALT 59 H Alkaline Phosphata se 119 H Total Protein 4.4 L Albumin 2.6 L Globulin 1.8 08/28/19 08/28/19 23:26 16:27 WBC Corrected WBC RBC Hgb Hct MCV MCH MCHC RDW Plt Count MPV Gran % Neut % (Auto) Lymph % (Auto) [place] % (Auto) Eos % (Auto) Baso % (Auto) Neut # (Auto) Lymph # (Auto) [place] # (Auto) Eos # (Auto) Baso # (Auto) Absolute Gran (aut o) Nucleated RBC % (a uto) Nucleated RBCs # APTT 50.0 H 52.1 H Sodium Potassium Chloride Carbon Dioxide Anion Gap BUN Creatinine Glucose Calculated Osmolal ity Calcium Total Bilirubin AST ALT Alkaline Phosphata se Total Protein Albumin Globulin Vitals: Last Vital Signs Temp 98.9 F 08/29/19 08:00 Pulse 69 08/29/19 08:38 Resp 18 08/29/19 08:38 BP 149/87 08/29/19 08:00 Pulse Ox 95 08/29/19 08:38 Discharge Plan Discharge Patient Disposition: Home, Self-Care Condition: Stable Prescriptions: New Mercyquis DVT-PE Treat 30D Start 5 mg (74 tabs) tablets,dose pack See Rx Instructions .ROUTE .COMPLEX Qty: 74 RF: 0 levofloxacin [Levaquin] 750 mg tablet 750 mg PO DAILY 5 Days RF: 0 Continued sacubitril-valsartan 24-26 mg tablet RF: 0 atorvastatin 20 mg tablet 20 mg PO DAILY RF: 0 trazodone 50 mg tablet 50 mg PO BEDTIME PRN (Reason: Sleep) RF: 0 hydrocodone-acetaminophen 5-325 mg tablet 1 - 2 tab PO Q4H PRN (Reason: Pain) RF: 0 carvedilol 3.125 mg tablet 3.125 mg PO BID RF: 0 dexamethasone 4 mg tablet See Rx Instructions .ROUTE .COMPLEX RF: 0 albuterol sulfate 90 mcg/actuation HFA aerosol inhaler 1 puff INHALATION Q6H PRN (Reason: Shortness Of Breath) RF: 0 Adult Multivitamin Gummies 200 mcg Tablet,Chewable 200 mcg PO DAILY RF: 0 lidocaine 5 % ointment 1 applic topical TID PRN (Reason: unknown) RF: 0 Entresto 24-26 mg tablet See Rx Instructions .ROUTE .COMPLEX RF: 0 Changed dexamethasone 4 mg tablet See Rx Instructions .ROUTE .COMPLEX Qty: 0 RF: 0 Discharge Orders: Discharge Order (Routine); Ordered 08/29/19 Ordered By: Akhil Ramirez Other Ambulatory Orders: CT head wo con* [id number] (Routine) Timeframe: 1 Week Facility: [facility] - Location: Radiology [facility] Ordered By: Akhil Ramirez Referrals: [facility] [Other] Your, oncologist [Other] - 1 week (PE, anticoagulation, metastatic cancer) Abena Bowie FNP [Family Provider] - 4-7 days (PE. Pulmonary infarcts. Anticoagulation. Brain mets.) Discharge Diet: Usual diet Discharge Activity: Increase activity as tolerated and Oxygen as instructed Activity Restrictions/Additional Instructions: Your risk of bleeding is increased with blood thinners. Please maintain strict fall precautions, avoid injuries. CT of the head is requested to be repeated in 1 week. Please follow-up further with your primary care doctor with regards to small but existing risk of bleeding inside the head while on blood thinners. Please discuss also with your cancer doctor and radiation treatment doctor. If you experience coughing up fresh blood, or other bleeding that can be stopped, any severe headache, or other abnormal symptoms, please seek medical attention without delay. Discharge Attestations Time Spent in Discharge Care*: greater than 30 min Quality Metrics Clinical Quality Measures During this hospital stay, did patient experience: None Coding Level of Care Code Acute Electronic Intelligence Officer for Hollyg Fwd Diagnoses Pulmonary emboli I26.99 Embolism, pulmonary with infarction I26.99 Non-small cell lung cancer metastatic to brain C34.90; C79.31
[2019-08-29] MEDS: levofloxacin-dextrose 5 % 750 MG/150 ML PREMIX 100 MG IV (11:06)
[2019-08-29] MEDS: apixaban 5 mg Tablet 10 MG PO ×2 (13:31→13:32)
== END 2019-08-29 14:44 | disposition home or self-care (01) | DRG 176 ==
LOC: ER 09:33 → MEDSURG 13:34
PROVIDERS: Admitting Provider Internal Medicine; Emergency Provider Family Medicine; Family Provider Nurse Practitioner Family; Visit Provider Internal Medicine
DX: I26.99 Other pulmonary embolism without acute cor pulmonale (principal); C34.90 Malignant neoplasm of unspecified part of unspecified bronchus or lung; C79.31 Secondary malignant neoplasm of brain; Z92.3 Personal history of irradiation; E78.5 Hyperlipidemia, unspecified
CPT/HCPCS: 12345; 36415; 36600; 70450; 71045; 71275; 80051; 80053; 81001; 82810; 83605; 83986; 85025; 85730; 86403; 87040; 87449; 94664; 96375; 99283; J1644; J1956; J2270; J2405; J2543; J7030; J8540; Q9967